=== PATIENT | female | born 1990 | race Caucasian/White ===

== ENCOUNTER 2020-12-23 08:06 | Inpatient (IN) | payer MEDICAID ==
[2020-12-23] MEDS ORDERED: fentaNYL 250 MCG/5 ML SDV ONE ×3 (08:10→12:13)
[2020-12-23] MEDS ORDERED: Neostigmine Methylsulfate 1 MG/ML 5 ML Syringe ONE (08:11)
[2020-12-23] MEDS ORDERED: Succinylcholine 200 MG/10 ML MDV ONE (08:11)
[2020-12-23] MEDS ORDERED: Glycopyrrolate 0.2 MG/ML 5 ML MDV ONE (08:11)
[2020-12-23] MEDS ORDERED: Ondansetron 4 MG/2 ML SDV ONE (08:11)
[2020-12-23] MEDS ORDERED: Propofol 200 MG/20 ML SDV ONE (08:11)
[2020-12-23] MEDS ORDERED: Rocuronium 50 MG/5 ML Vial ONE (08:11)
[2020-12-23] MEDS ORDERED: Dexamethasone 4 MG/ML SDV ONE (08:11)
[2020-12-23] MEDS ORDERED: Celecoxib 200 MG Cap PO ONE (08:30)
[2020-12-23] MEDS ORDERED: Acetaminophen 500 MG Tab PO ONE (08:30)
[2020-12-23] MEDS ORDERED: Scopolamine 1.5 MG Transdermal Patch TOP SCH ×2 (08:30→09:30)
[2020-12-23] MEDS ORDERED: Lactated Ringers 1,000 ML ONE (08:44)
[2020-12-23] MEDS ORDERED: cefOXitin 2 GM Vial ONE (08:52)
[2020-12-23] MEDS ORDERED: Dextrose 5%-Lactated Ringers 1,000 ML IV SCH (09:00)
[2020-12-23] MEDS ORDERED: Albuterol/Ipratropium 3.0-0.5 MG/3 ML Neb Soln NEB ONE (09:15)
[2020-12-23] MEDS ORDERED: cefOXitin 2 GM in Sodium Chloride 0.9% 50 ML IV ONE (09:45)
[2020-12-23] MEDS ORDERED: Ketamine 50 MG in Sodium Chloride 0.9% 49.5 ML IV SCH (10:00)
[2020-12-23] MEDS ORDERED: Ketamine 500 MG/5 ML MDV IV SCH (10:00)
[2020-12-23] MEDS ORDERED: Magnesium Sulfate 5.5 GM in Sodium Chloride 0.9% 250 ML IV ONE (10:00)
[2020-12-23] MEDS ORDERED: Labetalol 20 MG/4 ML Syringe ONE (13:06)
[2020-12-23] MEDS ORDERED: hydrOXYzine HCL 100 MG/2 ML SDV IM ONE (14:13)
[2020-12-23] MEDS ORDERED: Ondansetron 4 MG/2 ML SDV IVPUSH ONE (14:13)
[2020-12-23] MEDS ORDERED: Cyclobenzaprine 10 MG Tab PO PRN (16:05)
[2020-12-23] MEDS: Dextrose 5%-Lactated Ringers 1,000 ML IV SCH (16:41)
[2020-12-23] MEDS ORDERED: Calcium Gluconate 10% 1 GM/10 ML SDV IVPUSH PRN (17:00)
[2020-12-23] MEDS ORDERED: diphenhydrAMINE 50 MG/ML SDV IVPUSH PRN (17:00)
[2020-12-23] MEDS ORDERED: Metoclopramide 10 MG/2 ML SDV IVPUSH PRN (17:00)
[2020-12-23] MEDS ORDERED: Labetalol 20 MG/4 ML Syringe IVPUSH PRN (17:00)
[2020-12-23] MEDS ORDERED: hydrOXYzine HCL 100 MG/2 ML SDV IM PRN (17:00)
[2020-12-23] MEDS ORDERED: Albuterol/Ipratropium 3.0-0.5 MG/3 ML Neb Soln INH PRN (17:00)
[2020-12-23] MEDS: traMADol 50 MG Tab PO PRN ×2 (17:00→22:58)
[2020-12-23] MEDS ORDERED: Acetaminophen 500 MG Tab PO PRN (17:00)
[2020-12-23] MEDS ORDERED: HYDROmorphone 1 MG/ML Syringe IV PRN (17:00)
[2020-12-23] MEDS ORDERED: HYDROmorphone 0.5 MG/0.5 ML Syringe IVPUSH PRN (17:00)
[2020-12-23] MEDS: Acetaminophen 500 MG Tab PO SCH (17:05)
[2020-12-23] MEDS: cefOXitin 2 GM in Sodium Chloride 0.9% 50 ML IV SCH ×2 (17:07→23:00)
[2020-12-23] MEDS ORDERED: Pantoprazole 40 MG Vial IVPUSH SCH (17:30)
[2020-12-23] MEDS ORDERED: MVI, Adult with Vitamin K 10 ML, Thiamine 200 MG, Zinc/Copper/Manganese/Selenium 1 ML i... IV SCH ×4 (18:00)
[2020-12-23] MEDS: Heparin Sodium 5,000 Units/ML Vial SUBCUT SCH (20:59)
[2020-12-23] MEDS: Albuterol/Ipratropium 3.0-0.5 MG/3 ML Neb Soln INH SCH (21:03)
[2020-12-24] MEDS: Dextrose 5%-Lactated Ringers 1,000 ML IV SCH ×3 (01:03→08:42)
[2020-12-24] MEDS: Acetaminophen 500 MG Tab PO SCH ×3 (01:52→17:29)
[2020-12-24] MEDS: Ondansetron 4 MG/2 ML SDV IVPUSH PRN ×2 (01:57→07:52)
[2020-12-24] MEDS ORDERED: Iopamidol 612 MG/ML 50 ML SDV PO ONE (03:43)
[2020-12-24] MEDS: cefOXitin 2 GM in Sodium Chloride 0.9% 50 ML IV SCH ×3 (04:56→17:30)
[2020-12-24] MEDS: traMADol 50 MG Tab PO PRN ×2 (05:03→13:38)
[2020-12-24] MEDS: Albuterol/Ipratropium 3.0-0.5 MG/3 ML Neb Soln INH SCH ×4 (06:56→21:56)
[2020-12-24] MEDS: Heparin Sodium 5,000 Units/ML Vial SUBCUT SCH ×2 (07:41→19:42)
[2020-12-24] MEDS: oxyCODONE 5 MG Tab PO PRN ×2 (08:39→19:42)
[2020-12-24] MEDS: Celecoxib 200 MG Cap PO SCH ×2 (08:39→21:55)
[2020-12-24] MEDS: SCOPOLAMINE PATCH CHECK TOP SCH (08:41)
[2020-12-24] MEDS ORDERED: hydrOXYzine HCl 25 MG Tab PO PRN (13:57)
[2020-12-24] MEDS ORDERED: MVI, Adult with Vitamin K 10 ML, Thiamine 200 MG, Zinc/Copper/Manganese/Selenium 1 ML i... IV SCH ×4 (16:00)
[2020-12-24] MEDS ORDERED: Pantoprazole 40 MG Delayed-Release Granules 1 Packet PO SCH (16:30)
[2020-12-25] MEDS: Acetaminophen 500 MG Tab PO SCH ×2 (02:13→08:14)
[2020-12-25] MEDS: Dextrose 5%-Lactated Ringers 1,000 ML IV SCH (02:20)
[2020-12-25] MEDS: Albuterol/Ipratropium 3.0-0.5 MG/3 ML Neb Soln INH SCH ×2 (07:06→10:50)
[2020-12-25] MEDS ORDERED: Magnesium Hydroxide 400 MG/5 ML Susp 30 ML Cup PO PRN (07:51)
[2020-12-25] MEDS: Heparin Sodium 5,000 Units/ML Vial SUBCUT SCH (08:13)
[2020-12-25] MEDS: oxyCODONE 5 MG Tab PO PRN (08:13)
[2020-12-25] MEDS: Celecoxib 200 MG Cap PO SCH (08:13)
[2020-12-25] MEDS: SCOPOLAMINE PATCH CHECK TOP SCH (08:14)
[2020-12-25] MEDS ORDERED: Cyanocobalamin (Vitamin B12) 1,000 MCG/ML SDV IM ONE (09:00)
--- NOTE | 2020-12-26 09:15 | CR ---
[facility] HISTORY: Postbariatric surgery FINDINGS: Patient swallowed water-soluble contrast. Upright views of the abdomen show no evidence of extravasation or obstruction. There is a surgical drain in the left upper quadrant. IMPRESSION: Status post bariatric surgery No extravasation or obstruction seen
--- NOTE | 2020-12-26 13:39 | PN ---
DATE OF SERVICE: 12/24/2020 The patient is postop day 1 from a laparoscopic Eryn-en-Y gastric bypass. No major problems were noted overnight. Upper GI x-ray looks good. We will back down on the IV rate somewhat and move up to a step-2 diet. Otherwise, maximize activity and work with pulmonary toilet. Zi Miller MD /[id number]
--- NOTE | 2020-12-26 15:12 | DISCH ---
FINAL DIAGNOSES: 1. Morbid obesity. 2. Marked hepatomegaly. 3. Paraesophageal diaphragmatic hernia. 4. Asthma. OPERATIVE PROCEDURES: Done on 12/22, diagnostic laparoscopy with: 1. Laparoscopic Eryn-en-Y gastric bypass with long limb gastroenterostomy. 2. Tiago-Cut needle liver biopsy. 3. Repair of paraesophageal diaphragmatic hernia. SUMMARY: This is a 30-year-old female presenting with longstanding morbid obesity and increasingly significant comorbidities. After preoperative evaluation and discussion, she wished to proceed with a gastric bypass procedure. This was done on the day of admission. No major problems have been noted postoperatively. Tolerating a step 2 diet and taking Tylenol and Celebrex for pain with occasional oxycodone for breakthrough pain. Otherwise, she will be continued on her home medications other than the supplements and vitamins which she will hold until after first appointment and follow closely with Funmilayo Reich at [facility] on 01/03/2021. /[id number]
--- NOTE | 2020-12-26 17:31 | PCM.EKG ---
#1 Interpretation EKG Date: 12/23/20 Time: 08:40 Rhythm: NSR Rate (Beats/Min): 72 Leighton: Normal P-Wave: Present QRS: Normal ST-T: Normal QT: Normal Comparison: NA - No Prior EKG EKG Interpretation Comments: Normal EKG
--- NOTE | 2021-01-04 07:32 | OR ---
DATE OF PROCEDURE: 12/23/2020 SURGEON: Zi Miller MD PREOPERATIVE DIAGNOSIS: Morbid obesity. POSTOPERATIVE DIAGNOSES: 1. Morbid obesity. 2. Marked hepatomegaly. 3. Paraesophageal diaphragmatic hernia. PROCEDURE PERFORMED: Diagnostic laparoscopy with: 1. Laparoscopic Eryn-en-Y gastric bypass with long limb gastroenterostomy (56926). 2. Tiago-Cut needle liver biopsy (07994). 3. Repair of paraesophageal diaphragmatic hernia (46323). ANESTHESIA: General. INDICATIONS FOR PROCEDURE: This is a 30-year-old female presenting with longstanding morbid obesity and increasingly significant comorbidities. After preoperative evaluation and discussion, she wished to proceed with a gastric bypass procedure. Potential risks of the procedure including bleeding, infection, injury to underlying viscera, leaks from various GI tract closures were all reviewed, and the patient wishes to proceed. DETAILS OF PROCEDURE: The patient was taken to the operating room and placed in a supine position. After general endotracheal anesthesia was induced, she was converted to a lithotomy position and the abdomen prepped and draped. At 15 cm inferior and 5 cm left of the xiphoid process, a transverse incision was made and the peritoneal cavity entered under direct vision with an Optiview trocar and inflated to 15 mmHg pressure with CO2. The laparoscope was then reinserted. No underlying trocar insertion site injuries were seen. Following this, bilateral transversus abdominis plane blocks were placed. Five additional trocars were placed across the upper mid abdomen. The liver was noted to be markedly enlarged and fatty infiltrated. Tiago-Cut needle biopsies were obtained from left lobe of the liver, and minimal bleeding from the biopsy sites was controlled with electrocautery. The omentum was divided in the midline up to the level of the transverse colon. This allowed identification of the small bowel to the ligament of Treitz which was then traced out 125 cm distally where the small bowel was divided. The small bowel was then traced out an additional 175 cm where the [id number] enteroenterostomy was accomplished with internal firing of the Endo-DEVYN 60 mm stapler. Common opening was closed transversely with the same stapler, angles anastomosed, and mesenteric defect approximated with some 0 Ethibond stitch along with 4 mL of fibrin sealant. The small bowel was then brought up to the antecolic position to the level of the gastroesophageal junction without tension. The liver was then retracted anteriorly. The patient was noted to have a moderate-sized paraesophageal diaphragmatic hernia that was reduced and the peritoneum overlying incised and reflected downward. The hernia was then repaired with some 0 Ethibond sutures placed anteriorly which were reinforced with PTFE pledgets. The gastrointestinal balloon catheter was then inflated to 15 mL and pulled up snugly against the esophagogastric junction. The apex of the balloon was then marked with electrocautery and balloon catheter deflated and pulled up into the esophagus. The lesser omental tissue adjacent to the gastric cardia was then incised, allowing dissection behind the stomach at that level. Pouch formation was initiated with transverse firing of the DEVYN stapler at the level of the cauterized maribel in the gastric cardia and then completed with additional firings of DEVYN danielle up to and through the angle of His. Upon completion of the pouch, both staple lines were noted to be intact. The anvil of a 25 mm EEA stapler was attached to a Nome sump tube. The latter was brought down through the mouth and taken out through a small opening in the gastric pouch which allowed then the anvil to be pulled down within the gastric pouch as well. The Eryn limb was then opened and the main body of EEA stapler passed several centimeters in the lumen of small bowel, brought up the anvil, and united with it, thus creating the gastrojejunostomy. Upon removal of the stapler, double donuts of mucosa were noted within it. The small bowel was closed off with a vascular staple line. Gastrojejunostomy was reinforced with some 3-0 Vicryl seromuscular stitch along with 4 mL of fibrin sealant. A leak test was accomplished with injection of 120 mL of air in the gastric pouch while it was submerged with antibiotic-containing saline solution. No leaks were identified. A single Nam-Lancaster drain was taken out through the left subcostal trocar site and placed adjacent to the gastrojejunostomy, and from there, up into the area of the splenic fossa. At that point, the trocars were removed and the peritoneal cavity deflated. The incisions were closed with 4-0 Vicryl skin stitch, and the patient was taken to the recovery room in satisfactory condition. There were no evident complications. Zi Miller MD /[id number]
== END 2020-12-25 10:50 | disposition home or self-care (01) | DRG 621 ==
LOC: JP.SDS 08:06 → JP.SDSSCHI 08:06 → EDSTATUS 09:45 → JP.MS 14:15
PROVIDERS: ADMIT Surgery; ATTEND Surgery
PROC: 0D164ZA Bypass Stomach to Jejunum, Percutaneous Endoscopic Approach (ICD-10-PCS; principal; 2020-12-23)
PROC: 0FB24ZX Excision of Left Lobe Liver, Percutaneous Endoscopic Approach, Diagnostic (ICD-10-PCS; 2020-12-23)
PROC: 0BQT4ZZ Repair Diaphragm, Percutaneous Endoscopic Approach (ICD-10-PCS; 2020-12-23)
DX: E66.01 Morbid (severe) obesity due to excess calories (principal); R16.0 Hepatomegaly, not elsewhere classified; K44.9 Diaphragmatic hernia without obstruction or gangrene; J45.909 Unspecified asthma, uncomplicated; Z79.899 Other long term (current) drug therapy; Z88.8 Allergy status to other drugs, medicaments and biological substances; Z68.44 Body mass index [BMI] 60.0-69.9, adult
CPT/HCPCS: 36415; 74240; 74240-26; 80053; 81025; 83735; 83880; 84100; 85027; 86850; 86900; 86901; 88307; 88313; 93005; 94640; A9270-GY; C9113; J0171; J0330; J0694; J1100; J1644; J2405; J2704; J2710; J2795; J3010; J3410; J3411; J3420; J3475; J3490; J7050; J7120; J7121; J7620-GY; Q9967

== ENCOUNTER 2021-02-02 08:23 | Day surgery (SDC) | payer MEDICAID ==
[~2021-02-02 08:23] MED LIST: Midazolam 1 MG/ML 2 ML SDV ONE; Propofol 200 MG/20 ML SDV ONE; fentaNYL 100 MCG/2 ML SDV ONE
[2021-02-02] MEDS ORDERED: Cyanocobalamin (Vitamin B12) 1,000 MCG/ML SDV IM ONE (09:00)
[2021-02-02] MEDS ORDERED: Lactated Ringers 1,000 ML IV SCH (09:15)
[2021-02-02] MEDS ORDERED: Glycopyrrolate 0.2 MG/ML 2 ML SDV IVPUSH ONE (09:30)
[2021-02-02] MEDS ORDERED: MVI, Adult with Vitamin K 10 ML, Thiamine 200 MG, Chromium/Copper/Mang/Selen/Zn 1 ML in... IV ONE ×4 (10:15)
[2021-02-02] MEDS ORDERED: Dexamethasone 4 MG/ML SDV ONE (11:57)
[2021-02-02] MEDS ORDERED: Propofol 200 MG/20 ML SDV ONE (12:06)
--- NOTE | 2021-02-03 11:28 | OR ---
DATE OF PROCEDURE: 02/02/2021 SURGEON: Zi Miller MD PREOPERATIVE DIAGNOSIS: Probable stricture at gastrojejunostomy. POSTOPERATIVE DIAGNOSIS: Moderate stricture at gastrojejunostomy. OPERATIVE PROCEDURE: Upper gastrointestinal endoscopy with dilation of gastrojejunostomy (05332). ANESTHESIA: IV sedation. INDICATION FOR PROCEDURE: This is a 30-year-old status post Eryn-en-Y gastric bypass on 12/23/2020, presenting with some stricturing of the gastrojejunostomy. Plan is to proceed with upper GI endoscopy with dilation as indicated. Potential risks including bleeding and perforation were discussed, and the patient wishes to proceed. DETAILS OF PROCEDURE: The patient was taken to the operating room, placed in a left lateral decubitus position. IV sedation was administered, after which the upper GI endoscope was passed orally through the length of the esophagus into the gastric pouch. No retained food or fluid was noted. The patient was noted to have moderate stricture of the gastrojejunostomy with measuring around 8 mm in diameter. A Bard gastrointestinal balloon catheter was centered across the anastomosis and inflated to 30-Lux[place]bourgish size. This was held in position for 1 minute, after which balloon catheter was deflated and withdrawn. Satisfactory dilation was observed and no complications were evident. Procedure was then concluded. The patient was taken to the recovery room in satisfactory condition. Zi Miller MD /[id number]
== END 2021-02-02 13:15 | disposition home or self-care (01) ==
LOC: JP.SDS 08:23
PROVIDERS: ATTEND Surgery
DX: K91.89 Other postprocedural complications and disorders of digestive system (principal); G47.33 Obstructive sleep apnea (adult) (pediatric); Z98.84 Bariatric surgery status
CPT/HCPCS: 43245; 81025; J1100; J2250; J2704; J3010; J3411; J3420; J3490; J7120; C1726